=== PATIENT | female | born 2000 | race Caucasian/White ===

== ENCOUNTER 2024-02-12 17:51 | Emergency (ER) | payer OTHER ==
[~2024-02-12] VITALS: Ht 162.6 cm; Wt 51.7 kg
[2024-02-12] MEDS ORDERED: METOCLOPRAMIDE HCL 10 MG/2 ML SDV IV ONE (18:15)
[2024-02-12] MEDS ORDERED: SODIUM CHLORIDE 0.9% 1,000 ML IV ONE (18:15)
[2024-02-12] MEDS ORDERED: ACETAMINOPHEN 500 MG TAB PO ONE (18:15)
[2024-02-12 18:29] LABS: BASOPHILS 0.7 % (0-2); EOSINOPHILS 0.3 % (0-6); HEMATOCRIT 35.7 % (35.0-50.0); HEMOGLOBIN 12.2 g/dL (12.0-18.0); LYMPHOCYTES 16.5 % (24-44); MCHC 34.1 g/dl (30-36); MCV 87.8 fl (81-99); MONOCYTES 12.6 % (0-12); NEUTROPHILS 69.9 % (39-80); PLATELET COUNT 247 K/uL (140-440); RBC 4.06 M/ul (4.3-5.7); RDW 12.4 (10.5-15.0)
[2024-02-12 18:44] LABS: ALBUMIN 3.3 g/dL (3.4-5.0); ALBUMIN/GLOBULIN RATIO 0.97 (1.1-2.4); ANION GAP 10.8 (7-21); BILIRUBIN, TOTAL 0.8 ng/dL (0.2-1.0); BUN/CREATININE RATIO 14.75 (6.0-28.6); CALCIUM 8.5 mg/dL (8.5-10.1); CREATININE, SERUM 0.61 mg/dL (0.55-1.02); POTASSIUM 3.8 mmol/L (3.5-5.1); PROTEIN, TOTAL 6.7 g/dL (6.4-8.2)
[2024-02-12 18:46] LABS: BILIRUBIN, URINE NEGATIVE (negative); BLOOD/HGB, URINE SMALL (Negative); KETONE, URINE TRACE (Negative); LEUK ESTERASE, URINE SMALL (negative); NITRITE, URINE POSITIVE (negative)
[2024-02-12 18:58] LABS: BACTERIA, URINE 3+ /hpf (negative); CASTS, URINE NONE SEEN \\lpf; COLLECTION TYPE, URINE CLEAN CATCH; CRYSTALS, URINE NONE SEEN (0-1+); EPITHELIAL CELLS, URINE SQUAMOUS 1+ /lpf (0-1+); RED BLOOD CELLS, URINE 0-1 /hpf (0-5); REFLEX CULTURE, URINE Yes (No)
[2024-02-12] MEDS ORDERED: NITROFURANTOIN MONOHYD MACROCR 100 MG CAP PO ONE (19:15)
[2024-02-12] MEDS ORDERED: PROMETHAZINE HC25 M1 PO (19:16)
[2024-02-12] MEDS ORDERED: MACROBID 100 M100 MG PO (19:16)
[2024-02-12 20:28] VITALS: BP 95/68
== END 2024-02-12 20:28 | disposition home or self-care (01) ==
LOC: ED 17:51
PROVIDERS: Emergency Medicine
DX: O23.41 Unspecified infection of urinary tract in pregnancy, first trimester (principal); N39.0 Urinary tract infection, site not specified; Z3A.00 Weeks of gestation of pregnancy not specified; Z88.0 Allergy status to penicillin
CPT/HCPCS: 36415; 80053; 81001; 84703; 85025; 87077; 87088; 87186; 96374; 99283-25; A9270; J2765; J7030

== ENCOUNTER 2024-08-01 01:57 | Emergency (ER) | payer OTHER ==
[~2024-08-01] VITALS: Ht 162.6 cm; Wt 49.0 kg
[~2024-08-01 01:57] MED LIST: MACROBID 100 M100 MG PO; PROMETHAZINE HC25 M1 PO
[2024-08-01] MEDS ORDERED: TRAMADOL HCL50 MG PO (02:12)
[2024-08-01] MEDS ORDERED: IBU600 MG PO (02:12)
[2024-08-01] MEDS ORDERED: CLEOCIN HCL300 MG PO (02:12)
[2024-08-01] MEDS ORDERED: IBUPROFEN 600 MG TAB PO ONE (02:15)
[2024-08-01] MEDS ORDERED: clindamycin HCL 300 MG HOME.PACK PO ONE (02:15)
[2024-08-01] MEDS ORDERED: TRAMADOL HCL 50 MG HOME.PACK PO ONE (02:15)
[2024-08-01 02:30] VITALS: BP 107/56
== END 2024-08-01 02:32 | disposition home or self-care (01) ==
LOC: ED 01:57
DX: K04.01 Reversible pulpitis (principal); Z88.0 Allergy status to penicillin
CPT/HCPCS: 99283; A9270

== ENCOUNTER 2024-12-16 17:31 | Emergency (ER) | payer OTHER ==
[~2024-12-16] VITALS: Ht 162.6 cm; Wt 49.6 kg
[~2024-12-16 17:31] MED LIST changes: +CLEOCIN HCL300 MG PO; +IBU600 MG PO; +TRAMADOL HCL50 MG PO
[2024-12-16] MEDS ORDERED: CLINDAMYCIN HC150 MG PO (18:23)
[2024-12-16] MEDS ORDERED: IBUPROFEN 600 MG TAB PO ONE (18:30)
[2024-12-16] MEDS ORDERED: HYDROCODONE/ACETA 5/325 TAB PO ONE (18:30)
[2024-12-16 18:37] VITALS: BP 109/63
== END 2024-12-16 18:37 | disposition home or self-care (01) ==
LOC: ED 17:31
DX: K04.7 Periapical abscess without sinus (principal); K02.9 Dental caries, unspecified; Z88.0 Allergy status to penicillin
CPT/HCPCS: 99282; A9270

== ENCOUNTER 2024-12-17 01:46 | Emergency (ER) | payer OTHER ==
[~2024-12-17] VITALS: Ht 162.6 cm; Wt 50.4 kg
[~2024-12-17 01:46] MED LIST changes: +CLINDAMYCIN HC150 MG PO
--- OUTSIDE RECORDS SUMMARY | 2024-12-17 01:47 | XMS ---
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 EJonny VISIT COUNT (12 MO.) [address] [place] [address] TOTAL 4 NOTE: Visits indicate total known visits. ED/UCC VISIT TRACKING (12 MO.) 12/17/2024 01:46 [facility] TYPE: Emergency COMPLAINT: - DENTAL PAIN 12/16/2024 17:33 [facility] TYPE: Emergency COMPLAINT: - TOOTH,NECK PAIN 08/01/2024 01:57 [facility] TYPE: Emergency COMPLAINT: - FACIAL SWELLING DIAGNOSES: - Allergy status to penicillin - Jaw pain - Reversible pulpitis 02/12/2024 17:52 [facility] TYPE: Emergency COMPLAINT: - ABDOMINAL PAIN/ DIAGNOSES: - Allergy status to penicillin - Dorsalgia, unspecified - Unspecified infection of urinary tract in , first trimester - Urinary tract infection, site not specified - Weeks of gestation of not specified INPATIENT VISIT TRACKING (12 MO.) No inpatient visits to display in this time frame [email or web address]
[2024-12-17 02:20] VITALS: BP 117/71
== END 2024-12-17 02:21 | disposition home or self-care (01) ==
LOC: ED 01:46
DX: K04.7 Periapical abscess without sinus (principal); Z88.0 Allergy status to penicillin
CPT/HCPCS: 99282